=== PATIENT | female | born 1965 | race Caucasian/White ===

== ENCOUNTER → 2017-07-14 | Outpatient (CLI) | payer BC ==
--- NOTE | 2017-07-18 09:41 | MM ---
Reason for exam: screening (asymptomatic). Last mammogram was performed 1 year and 8 months ago. Physical Findings: A clinical breast exam by your physician is recommended on an annual basis and results should be correlated with mammographic findings. MG Screening Mammo w CAD Bilateral CC and MLO view(s) were taken. Prior study comparison: November 04, 2015, bilateral MG screening mammo w CAD. May 29, 2013, bilateral digital screening mammo w/CAD. The breast tissue is heterogeneously dense. This may lower the sensitivity of mammography. Asymmetric breast tissue in the right breast is stable. No significant changes when compared with prior studies. ASSESSMENT: Benign, BI-RAD 2 RECOMMENDATION: Routine screening mammogram of both breasts in 1 year.
== END | disposition home or self-care (01) ==
LOC: RADMAMWWP 09:29
PROVIDERS: ATTEND Internal Medicine
DX: Z12.31 Encounter for screening mammogram for malignant neoplasm of breast (principal)

== ENCOUNTER → 2018-12-04 | Outpatient (CLI) | payer BC ==
--- NOTE | 2018-12-05 11:21 | MM ---
Reason for exam: screening (asymptomatic). Last mammogram was performed 1 year and 5 months ago. Physical Findings: A clinical breast exam by your physician is recommended on an annual basis and results should be correlated with mammographic findings. MG Screening Mammo w CAD Bilateral CC and MLO view(s) were taken. Prior study comparison: July 14, 2017, bilateral MG screening mammo w CAD. November 04, 2015, bilateral MG screening mammo w CAD. The breast tissue is heterogeneously dense. This may lower the sensitivity of mammography. Left upper outer quadrant focal asymmetry, middle depth. Right middle depth superior asymmetry. ASSESSMENT: Incomplete: need additional imaging evaluation, BI-RAD 0 RECOMMENDATION: Special view mammogram of both breasts. If lesion persists on supplemental views, image directed ultrasound is recommended. [facility] will attempt to contact patient to return for supplemental views and ultrasound if indicated.
== END | disposition home or self-care (01) ==
LOC: RADMAMWWP 06:56
PROVIDERS: ATTEND Internal Medicine
DX: Z12.31 Encounter for screening mammogram for malignant neoplasm of breast (principal)
CPT/HCPCS: 77067

== ENCOUNTER → 2018-12-06 | Outpatient (CLI) | payer BC ==
--- NOTE | 2018-12-07 07:49 | MM ---
Reason for exam: additional evaluation requested from abnormal screening. Last mammogram was performed less than 1 month ago. Physical Findings: Nurse did not find any significant physical abnormalities on exam. MG Work Up Mamm w CAD BILAT Bilateral spot compression CC and LM view(s) were taken. Spot compression MLO view(s) were taken of the right breast. ML view(s) were taken of the left breast. Prior study comparison: December 04, 2018, bilateral MG screening mammo w CAD. July 14, 2017, bilateral MG screening mammo w CAD. The breast tissue is heterogeneously dense. This may lower the sensitivity of mammography. There are two persistent left upper outer quadrant masses at middle depth and right superior middle depth asymmetry with lateral correlate. These results were verbally communicated with the patient and result sheet given to the patient on 12/06/18. ASSESSMENT: Incomplete: need additional imaging evaluation, BI-RAD 0 RECOMMENDATION: Ultrasound of both breasts. (upper outer quadrant both breasts)
--- NOTE | 2018-12-07 07:51 | USB ---
Reason for exam: additional evaluation requested from abnormal screening. US Breast Workup Limited MARIANO Right limited breast ultrasound including focal area of concern, retroareolar and axilla demonstrates a 0.4 x 0.2 x 0.6cm cystic lesion at 10 o'clock. Left limited breast ultrasound including focal area of concern, retroareolar and axilla demonstrates a 0.9 x 0.6 x 0.7cm cystic lesion at 12 o'clock, a 0.5 x 0.5 x 0.5cm cystic lesion at 1 o'clock, a 0.4 x 0.2 x 0.4cm cystic lesion at 1 o'clock and a 0.8cm node at the axilla tail. These results were verbally communicated with the patient and result sheet given to the patient on 12/06/18. ASSESSMENT: Benign, BI-RAD 2 RECOMMENDATION: Return to routine screening mammogram schedule for both breasts.
== END ==
LOC: RADMAMWWP 14:35
PROVIDERS: ATTEND Internal Medicine
DX: R92.8 Other abnormal and inconclusive findings on diagnostic imaging of breast (principal)
CPT/HCPCS: 77066

== ENCOUNTER 2019-10-28 11:45 | Emergency (ER) | payer BC ==
[2019-10-28] MEDS ORDERED: MORPHINE SULFATE 4 MG/ML SYRINGE IM STA (12:13)
[2019-10-28] MEDS ORDERED: KETOROLAC 30 MG/ML 1 ML VIAL IM STA (12:13)
--- NOTE | 2019-10-28 12:17 | ED ---
General Adult HPI <Rodríguez Monge - Last Filed: 10/28/19 13:53> - General Source: patient, family, RN notes reviewed, old records reviewed Mode of arrival: ambulatory Limitations: no limitations <Cassie Arora - Last Filed: 10/28/19 14:37> - General Chief complaint: Extremity Injury, Upper Stated complaint: fall/wrist pain Time Seen by Provider: 10/28/19 12:06 - History of Present Illness Initial comments: Patient is a pleasant 54-year-old female who tripped down 2 stairs landing on her right wrist. She is in emergency room RN. Patient states that she landed with outstretched hand. She is right-handed. She states that she also thought her right hip that she's been able to ambulate. She denies any other significant complaints. (Cassie Arora) - Related Data Previous Rx's Medication Instructions Recorded HYDROcodone/APAP 5-325MG [Outlook 1 tab PO Q6HR PRN #10 tab 10/28/19 5-325] Ibuprofen [Motrin] 600 mg PO Q8HR PRN #30 tab 10/28/19 Allergies Allergy/AdvReac Type Severity Reaction Status Date / Time Penicillins Allergy Rash/Hives Verified 10/28/19 12:02 Review of Systems ROS Other: All systems not noted in ROS Statement are negative. <Rodríguez Monge - Last Filed: 10/28/19 13:53> ROS Other: All systems not noted in ROS Statement are negative. <Cassie Arora - Last Filed: 10/28/19 14:37> ROS Statement: Those systems with pertinent positive or pertinent negative responses have been documented in the HPI. Past Medical History Past Medical History: Thyroid Disorder History of Any Multi-Drug Resistant Organisms: None Reported Past Surgical History: No Surgical Hx Reported, Cholecystectomy Past Psychological History: No Psychological Hx Reported Smoking Status: Never smoker Past Alcohol Use History: Occasional Past Drug Use History: None Reported <Cassie Arora - Last Filed: 10/28/19 14:37> General Exam Limitations: no limitations General appearance: alert, in no apparent distress Head exam: Present: atraumatic, normocephalic, normal inspection Eye exam: Present: normal appearance, PERRL, EOMI. Absent: scleral icterus, conjunctival injection, periorbital swelling ENT exam: Present: normal exam, mucous membranes moist Neck exam: Present: normal inspection. Absent: tenderness, meningismus, lymphadenopathy Respiratory exam: Present: normal lung sounds bilaterally. Absent: respiratory distress, wheezes, rales, rhonchi, stridor Cardiovascular Exam: Present: regular rate, normal rhythm, normal heart sounds. Absent: systolic murmur, diastolic murmur, rubs, gallop, clicks GI/Abdominal exam: Present: soft, normal bowel sounds. Absent: distended, tenderness, guarding, rebound, rigid Extremities exam: Present: normal inspection, full ROM, normal capillary refill. Absent: tenderness, pedal edema, joint swelling, calf tenderness Right Elbow exam: Present: normal inspection, full ROM Forearm Wrist exam: Present: tenderness, swelling, deformity. Absent: normal inspection, full ROM Hand Wrist exam: Present: normal inspection, full ROM Neuro motor exam: Present: wrist extension intact, thumb opposition intact, thumb IP flexion intact, thumb adduction intact, fingers 2-5 abduction intact Vascular: Present: normal capillary refill Back exam: Present: normal inspection Neurological exam: Present: alert, oriented X3, CN II-XII intact Psychiatric exam: Present: normal affect, normal mood Skin exam: Present: warm, dry, intact, normal color. Absent: rash <Cassie Arora - Last Filed: 10/28/19 14:37> - General Exam Comments Initial Comments: Pleasant 54-year-old female. Alert and oriented. (Cassie Arora) Course Vital Signs 10/28/19 10/28/19 10/28/19 11:58 13:45 13:51 Temperature 97.4 F L Pulse Rate 60 70 67 Respiratory 18 20 18 Rate Blood Pressure 120/68 168/95 122/73 O2 Sat by Pulse 97 100 100 Oximetry 10/28/19 10/28/19 10/28/19 13:56 14:01 14:06 Temperature Pulse Rate 68 75 71 Respiratory 20 16 18 Rate Blood Pressure 122/78 124/74 124/74 O2 Sat by Pulse 98 100 100 Oximetry Procedures - Orthopedic Fracture Reduction Fracture #1 Consent Obtained: verbal consent Side: right Fracture Reduction Location: radius Technique: direct manipulation Post Reduction X-rays Demonstrate: anatomical reduction Post-Reduction Neuro Exam: intact Post-Reduction Vascular Exam: intact Splint Applied: Yes Patient Tolerated Procedure: well - Orthopedic Splinting/Casting Injury #1 Side: right Upper Extremity Injury Location: wrist Upper Extremity Immobilizer: sugar tong splint, Chago wrap, synthetic pre-padded splint - Procedural Sedation Procedural Sedation Start Time: 13:46 Procedural Sedation Stop Time: 13:48 Indications: fracture/dislocation reduction ASA Class: I Mallampati Airway Score: 1 Preparation: capnometry used IV Propofol Dose (mgs): 100 Complications: none Patient Tolerated Procedure: well <Cassie Arora - Last Filed: 10/28/19 14:37> Medical Decision Making - Radiology Data Radiology results: report reviewed <Cassie Arora - Last Filed: 10/28/19 14:37> - Medical Decision Making 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 She landed on her right wrist outstretched hand. Noted deformity. She is right-handed. She is neurovascularly intact. This time Patient x-ray shows comminuted intra-articular radius fracture. Patient received conscious sedation by Dr. lui and, and I was able to reduce the wrist. Patient was placed in a sugar tong splint. Patient tolerated the procedure well. Discussed following up with orthopedic. Given referral and pain medication. (Cassie Arora) - Radiology Data X-ray shows impacted fracture distal metaphyseal radius with dorsal and ulnar angulation of the distal radial fracture fragment. (Cassie Arora) Disposition <Rodríguez Monge - Last Filed: 10/28/19 13:53> Is patient prescribed a controlled substance at d/c from ED?: Yes When asked, does pt state using other controlled substances?: No If prescribed controlled substance>3 days was MAPS reviewed?: Prescribed <3 Days If opioid is for acute pain is fill amount 7 days or less?: Yes If Rx opioid, was Start Talking consent form obtained?: Yes <Cassie Arora - Last Filed: 10/28/19 14:37> Clinical Impression: Wrist fracture, right Disposition: HOME SELF-CARE Condition: Good Instructions (If sedation given, give patient instructions): Wrist Fracture in Adults (ED) Additional Instructions: Follow up with Dr. Vallecillo. Patient should remain in the splint until seen by orthopedic. Use the sling to help support the arm and take Motrin and Tylenol for pain. Use pain medicine as directed. Prescriptions: Ibuprofen [Motrin] 600 mg PO Q8HR PRN #30 tab PRN Reason: Pain HYDROcodone/APAP 5-325MG [Outlook 5-325] 1 tab PO Q6HR PRN #10 tab PRN Reason: Pain Referrals: Olivia Shaikh MD [Primary Care Provider] - 1-2 days Lee Vallecillo DO [Doctor of Osteopathic Medicine] - 1-2 days Dima Pimentel DO [Medical Doctor] - 1-2 days
[2019-10-28] MEDS ORDERED: SODIUM CHLORIDE 0.9% 1,000 ML IV ONE (12:45)
[2019-10-28] MEDS ORDERED: PROPOFOL 10 MG/ML 20 ML VIAL IV ONE (12:45)
--- NOTE | 2019-10-28 12:52 | XR ---
EXAMINATION TYPE: XR wrist complete RT DATE OF EXAM: 10/28/2019 COMPARISON: None HISTORY: Fall, deformity TECHNIQUE: 4 view right wrist FINDINGS: There is an impacted fracture of the distal metaphyseal radius. Some ulnar angulation of th e distal fracture fragment is present. Dorsal angulation and displacement is evident. Overlying soft tissue swelling is present. IMPRESSION: 1. Impacted fracture distal metaphyseal radius with dorsal and ulnar angulation of the distal radial fracture fragment.
[2019-10-28 14:08] VITALS: RESP 18
--- NOTE | 2019-10-28 14:15 | XR ---
EXAMINATION TYPE: XR wrist limited RT DATE OF EXAM: 10/28/2019 COMPARISON: 10/28/2019 exam earlier today HISTORY: Fracture distal radius TECHNIQUE: 2 view right wrist through a fiberglass cast FINDINGS: The fracture appears to be reduced with improved alignment and positioning from prior study . No new fractures are evident. IMPRESSION: 1. Improved alignment and positioning of distal metaphyseal radial fracture through a fiberglass damaso t.
[2019-10-28 14:59] VITALS: BP 127/86; PULSE 71; TEMP 97.8
== END 2019-10-28 14:58 | disposition home or self-care (01) ==
LOC: EC 11:45
DX: S52.591A Other fractures of lower end of right radius, initial encounter for closed fracture (principal); Z88.0 Allergy status to penicillin; W10.9XXA Fall (on) (from) unspecified stairs and steps, initial encounter
CPT/HCPCS: 73100; 73110; 99284; 25605; 96374; 96361; 96372 ×2; J2270; J1885; J2704

== ENCOUNTER → 2019-11-01 | Day surgery (SDC) | payer BC ==
[~2019-11-01] MED LIST: DEXAMETHASONE SOD PHOSPHATE 10 MG/ML 1 ML VIAL IV ONE; KETAMINE 10 MG/ML 20 ML VIAL ONE; KETOROLAC 30 MG/ML 1 ML VIAL ONE; LACTATED RINGERS 1,000 ML IV ONE; LIDOCAINE 1%-EPI 1:100,000 20 ML VIAL SQ ONE; METOPROLOL TARTRATE 5 MG/5 ML VIAL IVP ONE; MIDAZOLAM 2 MG/2 ML VIAL IVP ONE; MIDAZOLAM 2 MG/2 ML VIAL ONE; ONDANSETRON 4 MG/2 ML VIAL IVP ONE; PROPOFOL 10 MG/ML 20 ML VIAL IV ONE; ROPIVACAINE 5 MG/ML 30 ML VIAL MISCELLANE ONE; ROPIVACAINE 5 MG/ML 30 ML VIAL ONE; fentaNYL (PF) 50 MCG/ML 2 ML AMP IVP ONE; fentaNYL (PF) 50 MCG/ML 2 ML AMP ONE
--- NOTE | 2019-11-01 10:35 | P.ANPRN ---
Procedure Note - Anesthesia - Nerve Block Performed Right Axillary Single Time Out Performed: Yes Date of Procedure: 11/01/19 Procedure Start Time: Procedure Stop Time: Location of Patient: PreOp Indication: Acute Post-Operative Pain, Dx/Pain Location (Right Hand/Wrist), Requested by Surgeon Sedation Type: Sedate with meaningful contact maintained Preparation: Sterile Prep Position: Supine Catheter: None Needle Types: Pajunk Needle Gauge: 20 Ultrasound used to visualize needle placement: Yes Ultrasound used to observe medication spread: Yes Injectate: 0.5% Ropivacaine (see comment for volume) (20ml) Blood Aspirated: No Pain Paresthesia on Injection Noted: No Resistance on Injection: Normal Image Stored and Saved: Yes Events: Uneventful and Well Tolerated
[2019-11-01 12:09] VITALS: TEMP 97.5
--- NOTE | 2019-11-01 12:24 | XR ---
Fluoroscopy INDICATION: Pain FINDINGS: Images obtained: 5. IMPRESSIONS: 1. Documentation of fluoroscopy.
--- NOTE | 2019-11-01 12:25 | FL ---
Fluoroscopy INDICATION: Pain FINDINGS: Fluoroscopy time: 2.19 seconds. Images obtained: 5. IMPRESSIONS: 1. Documentation of fluoroscopy.
[2019-11-01 12:46] VITALS: RESP 17
[2019-11-01 13:03] VITALS: BP 129/83; PULSE 74
--- NOTE | 2019-11-03 11:39 | P.OP ---
Date of Procedure: 11/01/19 Preoperative Diagnosis: Displaced intra-articular right distal radius fracture. Postoperative Diagnosis: Displaced intra-articular right distal radius fracture. Procedure(s) Performed: Open reduction and internal fixation of displaced intra-articular right distal radius fracture (3+ fragments: CPT 95750) Implants: Acumed Acu-Loc 2 volar distal radius plate (right, narrow) with locking and cortical screws. Anesthesia: MAC, regional Surgeon: Dima Pimentel Estimated Blood Loss (ml): 25 Condition: stable Disposition: PACU Indications for Procedure: The patient is a pleasant 54-year-old right-hand dominant female who sustained a displaced right distal radius fracture after a mechanical fall. Treatment options (and their associated risks and benefits) were discussed in the office. Based on the fracture pattern and amount of displacement, surgical stabilization was recommended, in the form of open reduction and internal fixation. The patient expressed understanding and agreed with operative intervention. In preop, additional questions were addressed and the patient wished to proceed with surgery. Consent forms were signed. The surgical site was confirmed and marked preoperatively. Description of Procedure: The patient was administered a regional nerve block by the anesthesia team and then was brought to the operating suite. She was positioned supine with the operative limb on an arm board. All bony prominences were well-padded. Anesthesia and prophylactic IV antibiotics were administered uneventfully. A tourniquet was placed on the right arm, which was then prepped and draped in standard, sterile fashion. A timeout was performed, confirming patient identifiers, the operative side, the site and the procedure to be performed: All team members expressed agreement. The limb was exsanguinated with an Esmarch and the tourniquet was inflated. A standard volar FCR approach was utilized. The skin was incised sharply incised, extending obliquely across the wrist flexion crease. The subcutaneous tissues were spread, coagulating superficial vessels as needed. The radial artery was identified and protected throughout the case. There were quite a few perforating vessels which required coagulation. The FCR sheath was released and the tendon was mobilized. The floor of the sheath was incised. Blunt finger dissection was used to expose the pronator quadratus. There was a transverse traumatic rent in the muscle belly at the level of fracture site. This was sharply extended along the radial border of the muscle and subperiosteally elevated ulnarly. The fracture site was visualized. There was a transverse fracture across the metaphysis, extending intra- articularly into the sigmoid notch. Metaphyseal comminution and bone loss were noted proximal to this along the intermediate column with two small displaced metaphyseal fragments. A separate large dorsal metaphyseal fragment was noted on imaging but was not directly visualized from the volar exposure. There was marked shortening of the radial column. The fracture site was opened and cleaned of hematoma and fibrous tissue. The fracture was manually reduced, using a combination of axial traction, ulnar deviation and palmar translation. Improved alignment was achieved but residual shortening and radial translation remained. The brachioradialis was identified at its insertion on the radial styloid fragment. This was released to remove its deforming force, taking care to protect the first dorsal compartment tendons. The standard plate was initially selected but was found to be too wide for the patients anatomy and this was changed to the narrow plate. It was positioned on the volar radius and provisionally pinned in place. Imaging demonstrated persistent shortening and radial translation of the distal fragments. The plate was removed. A 0.062 K wire was inserted percutaneously into the radial styloid. With the fracture held reduced, this was advanced across the fracture site and into the metaphysis for provisional stabilization. This did not afford sufficient stabilization of the fracture and a second wire was inserted in a slightly different trajectory, achieving better stability. The plate was reinserted and pinned in place. Its position was adjusted until satisfactory. When evaluated on the lateral view, there was residual shortening and dorsal translation of the distal fragments. The wires holding the plate were removed. The plate was clamped to the metaphysis with a lobster-claw. The percutaneous K wires in the styloid were backed out across the fracture site. Using the plate as a reduction tool, the fracture was remanipulated with axial traction, palmar translation and flexion. The K wires were then advanced back across the fracture. Good reduction was achieved when held manually but shifted again when released. A small incision was made over the dorsal metaphysis. Spreading dissection proceeded down to the dorsal cortex, taking care to protect the extensor tendons. A large pointed reduction clamp was placed directly on the dorsal rim of the distal radius and clamped to the plate through the volar wound. The wires were backed out again and the fracture was manually reduced. The clamp was tightened and the wires were readvanced. Due to the metaphyseal comminution, this did not adequately stabilize the fracture. Another 0.062 K wire was inserted dorsally for additional stability. Once satisfactory reduction and plate position was achieved, a cortical screw was drilled, measured and inserted into the oblong hole of the shaft. Prior to inserting the distal screws, residual step-off and rotation was noted at the base of the radial styloid. A pointed reduction clamp was inserted into the wound and clamped at the styloid and base of the intermediate column. Axial traction and ulnar deviation were applied, which improved the alignment, and the clamp was tightened. The distal locking screws were drilled, measured and inserted sequentially, checking length and trajectory on imaging. An additional cortical screw was drilled, measured and inserted to secure the plate to the shaft. Final x-rays were obtained, including a 20 inclined lateral view, confirming extra-articular screw placement. Some residual radial translation and step-off was noted at the base of the radial styloid. DRUJ was well-aligned on all views with neutral variance. The wrist was then ranged under live fluoroscopy - no gross motion of the fracture fragments or fixation construct with PROM but mild compression was noted at the dorsal metaphysis with axial load and extension. No carpal subluxation. No further fixation was deemed necessary. The tourniquet was released after 121 minutes at 250 mmHg and was not used for the remainder of the case. Hemostasis was obtained with manual pressure and bipolar cautery. The wound was thoroughly irrigated with normal saline. The pronator was loosely repaired with interrupted 2-0 Vicryl sutures. The subcutaneous tissues were reapproximated with interrupted 2-0 & 3-0 Vicryl sutures. The incision was closed with interrupted 4-0 nylon sutures. Local anesthetic with epinephrine was injected into the perioperative subcutaneous tissues for adjunctive postoperative pain control and hemostasis. A sterile dressing was applied, followed by a resting volar plaster splint. All sponge, needle and instrument counts were correct at the end of the case. The patient tolerated the procedure well and was taken to the recovery room in stable condition.
== END | disposition home or self-care (01) ==
LOC: OR 06:01
PROVIDERS: ATTEND Orthopaedic Surgery
DX: S52.571A Other intraarticular fracture of lower end of right radius, initial encounter for closed fracture (principal); E03.9 Hypothyroidism, unspecified; K21.9 Gastro-esophageal reflux disease without esophagitis; Z88.0 Allergy status to penicillin; Z79.890 Hormone replacement therapy; Z97.3 Presence of spectacles and contact lenses; Z90.49 Acquired absence of other specified parts of digestive tract; W19.XXXA Unspecified fall, initial encounter
CPT/HCPCS: 64415; 81025; 76942; 82306; 73100; 25609; C1713; J2250; J1100; J0690; J2405; J3010; J1885; J2795; J2704

== ENCOUNTER → 2019-12-19 | Outpatient (CLI) | payer BC ==
--- NOTE | 2019-12-19 14:11 | US ---
EXAMINATION TYPE: US mass soft tissue chest/back DATE OF EXAM: 12/19/2019 COMPARISON: NONE CLINICAL HISTORY: R22.9 Localized swelling, mass and lump, unspecifi. Visual left lateral upper back protrusion. No prominent palpable. TECHNIQUE/FINDINGS: Left lateral upper back area of concern scanned. No prominent masses or lesions visualized. Left focal thickness visualized compared to contralateral side on image 13/19. IMPRESSION: No suspicious sonographic findings. Fur Examiner notes focal subcutaneous thickening in t he area of concern in comparison to the contralateral side. CT thorax with placement of a palpable BB marker is recommended to further evaluate this thickening, possible lipomatous lesion.
== END | disposition home or self-care (01) ==
LOC: RADUSWWP 12:10
PROVIDERS: ATTEND Internal Medicine
DX: R22.9 Localized swelling, mass and lump, unspecified (principal)

== ENCOUNTER → 2020-01-07 | Outpatient (CLI) | payer BC ==
--- NOTE | 2020-01-07 14:34 | CT ---
EXAMINATION TYPE: CT chest w con DATE OF EXAM: 01/07/2020 COMPARISON: None HISTORY: Left sided back/chest mass. BB placed on region of interest. CT DLP: 384.4 mGycm Automated exposure control for dose reduction was used. CONTRAST: CT scan of the chest is performed with IV Contrast, patient injected with 100ml mL of Isovue 300. FINDINGS: LUNGS: The lungs are grossly clear, there is no concerning parenchymal mass or nodule identified. T here is no pleural effusion or pneumothorax seen. The tracheobronchial tree is patent. MEDIASTINUM: There are no greater than 1 cm hilar or mediastinal lymph nodes. No pericardial effusi on is seen. Thoracic aorta is of normal caliber. The heart is not enlarged. UPPER ABDOMEN: No significant abnormality appreciated. OTHER: Along the left lateral chest wall there is a fat density mass measuring 10.8 x 6.6 x 9.5 cm c ompatible with lipoma. No additional masses seen. IMPRESSION: Lipoma at the site of clinical concern. Otherwise unremarkable study.
== END | disposition home or self-care (01) ==
LOC: RADCTMAIN 13:40
PROVIDERS: ATTEND Internal Medicine
DX: R22.2 Localized swelling, mass and lump, trunk (principal)
CPT/HCPCS: 71260; Q9967

== ENCOUNTER → 2020-03-17 | Outpatient (CLI) | payer BC ==
--- NOTE | 2020-03-17 14:53 | CT ---
EXAMINATION TYPE: CT wrist RT wo con DATE OF EXAM: 03/17/2020 COMPARISON: None HISTORY: 54-year-old female Pain Rt Wrist TECHNIQUE: Contiguous axial scanning of the right wrist without IV contrast. Coronal and sagittal rec onstructions performed. 3-D reconstructions generated on a dedicated independent workstation. CT DLP: 105.6 mGycm Automated exposure control for dose reduction was used. FINDINGS: There is an oblique fracture of the distal radial metaphysis with volar plate and screw fixation. There may be small areas of bony bridging along the volar cortex but otherwise, the majority of the f racture margins are sclerotic. The radiocarpal joint appears intact. A fracture line extends to the proximal margin of the distal ra dial ulnar joint. No acute fracture is seen. Hardware appears intact. IMPRESSION: 1. OBLIQUE FRACTURE OF THE DISTAL RADIAL METAPHYSIS WITH VOLAR PLATE AND SCREW FIXATION. THE FRACTURE MARGINS DEMONSTRATE SCLEROSIS SUGGESTING DELAYED UNION. THERE MAY BE SMALL AREAS OF BONY BRIDGING AL STUART THE VOLAR CORTEX, BUT OTHERWISE, THE MAJORITY HAS NOT HEALED. 2. ORTHOPEDIC HARDWARE APPEARS INTACT.
== END | disposition home or self-care (01) ==
LOC: RADCTMAIN 13:18
PROVIDERS: ATTEND Orthopaedic Surgery
DX: S52.501D Unspecified fracture of the lower end of right radius, subsequent encounter for closed fracture with routine healing (principal); Z96.698 Presence of other orthopedic joint implants

== ENCOUNTER → 2022-07-22 | Outpatient (CLI) | payer BC ==
--- NOTE | 2022-07-25 07:46 | MM ---
Reason for Exam: Screening (asymptomatic). Last mammogram was performed 3 year(s) and 8 month(s) ago. Patient History: Menarche at age 15. First Full-Term at age 25. Postmenopausal. Patient has history of breast feeding. Risk Values: Sarah 5 year model risk: 1.0%. NCI Lifetime model risk: 7.5%. Prior Study Comparison: 11/04/2015 Bilateral Screening Mammogram, [facility]. 07/14/2017 Bilateral Screening Mammogram, [facility]. 12/04/2018 Bilateral Screening Mammogram, [facility]. 12/06/2018 Bilateral Diagnostic Mammogram, [facility]. Tissue Density: There are scattered fibroglandular densities. Findings: Analyzed By CAD. Round circumscribed masses bilaterally are unchanged from prior mammogram including largest towards the left axilla. There is no suspicious group of microcalcifications or new suspicious mass in either breast. Overall Assessment: Benign, BI-RAD 2 Management: Screening Mammogram of both breasts in 1 year. A clinical breast exam by your physician is recommended on an annual basis and results should be correlated with mammographic findings. Electronically signed and approved by: Bhavin Chan M.D.
== END | disposition home or self-care (01) ==
LOC: RADMAMWWP 07:56
PROVIDERS: ATTEND Internal Medicine
DX: Z12.31 Encounter for screening mammogram for malignant neoplasm of breast (principal); Z78.0 Asymptomatic menopausal state
CPT/HCPCS: 77067

== ENCOUNTER → 2024-09-24 | Outpatient (CLI) | payer BC ==
--- NOTE | 2024-09-24 10:16 | MM ---
Reason for Exam: Screening (asymptomatic). Last mammogram was performed 2 year(s) and 2 month(s) ago. Patient History: Menarche at age 15. First Full-Term at age 25. Postmenopausal. Patient has history of breast feeding. Risk Values: Sarah 5 year model risk: 1.1%. NCI Lifetime model risk: 7.2%. Prior Study Comparison: 12/04/2018 Bilateral Screening Mammogram, [facility]. 12/06/2018 Bilateral Diagnostic Mammogram, [facility]. 07/22/2022 Bilateral MG screening mammo w CAD, [facility]. Tissue Density: The breasts are heterogeneously dense, which may obscure small masses. Findings: Analyzed By CAD. There is no suspicious group of microcalcifications or new suspicious mass in either breast. Overall Assessment: Benign, BI-RAD 2 Management: Screening Mammogram of both breasts in 1 year. . Patient should continue monthly self-breast exams. A clinical breast exam by your physician is recommended on an annual basis. This exam should not preclude additional follow-up of suspicious palpable abnormalities. Note on Sarah scores and lifetime risk: 1. A Sarah score greater than 3% is considered moderate risk. If this is the case, consider specialist referral to assess eligibility for a risk reducing agent. 2. If overall lifetime risk for the development of breast cancer is 20% or higher, the patient may qualify for future screening with alternating mammogram and breast MRI. [facility], , 09/24/2024 10:12 AM. Electronically signed and approved by: Fredrick Boateng M.D. Radiologis
== END | disposition home or self-care (01) ==
LOC: RADMAMWWP 07:49
PROVIDERS: ATTEND Internal Medicine
DX: Z12.31 Encounter for screening mammogram for malignant neoplasm of breast (principal); R92.333 Mammographic heterogeneous density, bilateral breasts; Z78.0 Asymptomatic menopausal state
CPT/HCPCS: 77067